=== PATIENT | female | born 1985 | race Caucasian/White ===

== ENCOUNTER → 2020-11-28 | Day surgery (SDC) | payer OTHER ==
[~2020-11-28] MED LIST: ANUSOL-HC25 MG PR; BENADRYL 25MG C25 MG PO; DICYCLOMINE HCL20 MG PO; ETODOLAC500 MG PO; HYDROCHLOROTHIA25 MG PO; IBUPROFEN600 MG PO; LEVOFLOXACIN500 MG PO; MACROBID 100 M100 MG PO; METHOCARBAMOL750 MG PO; NORCO 5-325 TA1 EACH PO; PEPCID20 MG PO; PREDNISONE50 MG PO; TENORMIN 25 MG25 MG PO; ZOFRAN 4 MG TAB4 MG PO
== END | disposition home or self-care (01) ==
LOC: OR 07:00
PROVIDERS: Internal Medicine Gastroenterology
PROC: 0DBE8ZX Excision of Large Intestine, Via Natural or Artificial Opening Endoscopic, Diagnostic (ICD-10-PCS; 2020-11-28)
PROC: 0DBB8ZX Excision of Ileum, Via Natural or Artificial Opening Endoscopic, Diagnostic (ICD-10-PCS; principal; 2020-11-28 12:45)
DX: R19.7 Diarrhea, unspecified (principal); K64.0 First degree hemorrhoids; K76.0 Fatty (change of) liver, not elsewhere classified; K74.60 Unspecified cirrhosis of liver; I10 Essential (primary) hypertension; G89.29 Other chronic pain; M54.9 Dorsalgia, unspecified; E66.01 Morbid (severe) obesity due to excess calories; Z68.36 Body mass index [BMI] 36.0-36.9, adult; Z88.5 Allergy status to narcotic agent; Z20.822 Contact with and (suspected) exposure to COVID-19
CPT/HCPCS: J2704; J7040

== ENCOUNTER 2021-06-02 19:07 | Emergency (ER) | payer OTHER | END 2021-06-02 21:30 | disposition home or self-care (01) | LOC: ER1 19:07 | DX: R19.7 Diarrhea, unspecified (principal); R51.9 Headache, unspecified; R11.10 Vomiting, unspecified; R61 Generalized hyperhidrosis; Z20.822 Contact with and (suspected) exposure to COVID-19; Z88.5 Allergy status to narcotic agent; Z79.899 Other long term (current) drug therapy | CPT/HCPCS: 99284; U0002 ==

== ENCOUNTER 2021-06-18 10:56 | Emergency (ER) | payer OTHER | END 2021-06-18 12:23 | disposition left against medical advice (07) | LOC: ER1 10:56 | DX: U07.1 COVID-19 (principal); Z88.5 Allergy status to narcotic agent | CPT/HCPCS: 99284 ==

== ENCOUNTER 2021-06-20 00:06 | Emergency (ER) | payer OTHER ==
[~2021-06-20] VITALS: Ht 160 cm; Wt 102.1 kg
[2021-06-20 03:12] LABS: HEMOGLOBIN 12.9 gm/dl (12.3-15.3); RED BLOOD COUNT 4.29 M/UL (4.00-5.10)
[2021-06-20 03:41] LABS: BUN/CREATININE RATIO 12 (0-10)
[2021-06-20] MEDS ORDERED: IBUPROFEN800 MG PO (04:57)
[2021-06-20] MEDS ORDERED: PROAIR HFA8.5 GM INH (04:57)
[2021-06-20] MEDS ORDERED: MUCINEX1200 MG PO (04:57)
== END 2021-06-20 05:12 | disposition home or self-care (01) ==
LOC: ER1 00:06
PROVIDERS: Physician Assistant
DX: Z23 Encounter for immunization (principal); U07.1 COVID-19; J12.82 Pneumonia due to coronavirus disease 2019; R74.01 Elevation of levels of liver transaminase levels; I10 Essential (primary) hypertension; Z88.5 Allergy status to narcotic agent
CPT/HCPCS: 71045; 80053; 81001; 82550; 82553; 83690; 83874; 84484; 84703; 85025; 87081; 87086; 87880; 93005

== ENCOUNTER 2021-06-24 02:56 | Emergency (ER) | payer OTHER ==
[~2021-06-24 02:56] MED LIST changes: +IBUPROFEN800 MG PO; +MUCINEX1200 MG PO; +PROAIR HFA8.5 GM INH
[2021-06-24 04:28] LABS: HEMOGLOBIN 12.4 gm/dl (12.3-15.3); RED BLOOD COUNT 4.2 M/UL (4.00-5.10); WHITE BLOOD COUNT 6.4 K/UL (4.5-11.0)
[2021-06-24 05:00] LABS: BUN/CREATININE RATIO 8 (0-10)
== END 2021-06-24 08:30 | disposition home or self-care (01) ==
LOC: ER1 02:56
PROVIDERS: Emergency Medicine
DX: U07.1 COVID-19 (principal); Z88.5 Allergy status to narcotic agent
CPT/HCPCS: 36600; 71045; 80053; 82550; 82553; 82803; 83874; 84484; 85025; 85379; 93005; 99285; Q9967